=== PATIENT | male | born 1980 | race American Indian/Alaskan Native ===

== ENCOUNTER 2018-01-10 17:56 | Emergency (ER) | payer OTHER ==
[~2018-01-10] VITALS: Ht 167.6 cm; Wt 81.7 kg
[~2018-01-10 17:56] MED LIST: ALBU90OI INH; AMOCLA875 PO; AMOX500 PO; ANASPAZ PO; AZIT250 PO; CEPH500 PO; CIPR500 PO; CLON1 PO; CODGUAEL PO; CYCL10 PO; HYDACE10B PO; HYDACE5 PO; HYDR1TAB94 PO; HYOS.125 SL; IBUP800 PO; LEVFLO500 PO; LOPE2C PO; METO50 PO; METR500 PO; OXYACE5T PO; OXYACE7.5T PO; PANT40 PO; PRAZ2 PO; PRED10 PO; PRED20 PO; PROM25 PO; QUET200 PO; RANI150 PO; RXOXYACE PO; SULF500A PO; TRAM50 PO; WELLBUTRIN
[2018-01-10] MEDS ORDERED: Bactrim Ds Tab1 EACH PO (19:40)
[2018-01-10] MEDS ORDERED: CEPH500 PO (19:40)
== END 2018-01-10 19:45 | disposition home or self-care (01) ==
LOC: ER 17:56
DX: L01.00 Impetigo, unspecified (principal); Z91.030 Bee allergy status; Z88.8 Allergy status to other drugs, medicaments and biological substances; Z79.899 Other long term (current) drug therapy; Z79.891 Long term (current) use of opiate analgesic; J45.909 Unspecified asthma, uncomplicated; F43.10 Post-traumatic stress disorder, unspecified; F32.9 Major depressive disorder, single episode, unspecified; F20.9 Schizophrenia, unspecified; F17.210 Nicotine dependence, cigarettes, uncomplicated
CPT/HCPCS: 99283

== ENCOUNTER 2018-04-10 08:57 | Inpatient (IN) | payer OTHER ==
[~2018-04-10] VITALS: Ht 167.6 cm; Wt 81.9 kg
[~2018-04-10 08:57] MED LIST changes: +Bactrim Ds Tab1 EACH PO
[2018-04-10 10:18] LABS: BASOPHILS ABSOLUTE AUTO 0.03 K/mm3 (0.00-0.23); BASOPHILS PERCENT AUTO 0 % (0-2); EOSINOPHILS ABSOLUTE AUTO 0.04 K/mm3 (0.00-0.68); EOSINOPHILS PERCENT AUTO 0 % (0-6); Hematocrit 39.7 % (37.0-53.0); Hemoglobin 12.9 g/dL (13.5-17.5); IMMATURE GRAN ABSOLUTE AUTO 0.04 K/mm3 (0.00-0.10); IMMATURE GRAN PERCENT AUTO 0 % (0-1); LYMPHOCYTES ABSOLUTE AUTO 1.59 K/mm3 (0.84-5.20); LYMPHOCYTES PERCENT AUTO 11 % (21-46); MONOCYTES ABSOLUTE AUTO 1.09 K/mm3 (0.16-1.47); MONOCYTES PERCENT AUTO 8 % (4-13); Mean Corpuscular HGB 30.6 pg (26.0-34.0); Mean Corpuscular HGB Conc 32.5 g/dL (31.5-36.5); Mean Corpuscular Volume 94 fL (80-100); Mean Platelet Volume 9.1 fL (9.1-12.4); NEUTROPHILS ABSOLUTE AUTO 11.79 K/mm3 (1.96-9.15); NEUTROPHILS PERCENT AUTO 81 % (41-73); Platelet Count 296 K/mm3 (150-400); RDW Coefficient Variation 12.8 % (11.7-14.2); RDW Standard Deviation 44.1 fL (35.1-46.3); Red Blood Cell Count 4.21 M/mm3 (4.30-5.90); White Blood Cell Count 14.58 K/mm3 (4.00-11.30)
[2018-04-10 10:47] LABS: Alanine Aminotransfer (ALT/SGP 31 U/L (12-78); Albumin, Blood 3.8 g/dL (3.4-5.0); Alk Phos 96 U/L (50-136); Anion Gap 5 mmol/L (6-16); Aspartate Aminotrans (AST/SGOT 15 U/L (12-37); Bilirubin, Total 0.6 mg/dL (0.1-1.0); Blood Urea Nitrogen 9 mg/dL (8-24); Bun/Creatinine Ratio 9.2 (12.0-20.0); CO2, Blood 30 mmol/L (21-32); Calcium, Blood 8.6 mg/dL (8.5-10.1); Chloride, Blood 105 mmol/L (98-108); Creatinine, Blood 0.98 mg/dL (0.60-1.20); Globulin, Blood 3.8 g/dL (2.2-4.0); Glomerular Filtration Rate >60 (60-); Glucose, Blood 111 mg/dL (70-99); Potassium, Blood 3.6 mmol/L (3.5-5.5); Sodium, Blood 140 mmol/L (136-145); Total Protein, Blood 7.6 g/dL (6.4-8.2)
--- NOTE | 2018-04-10 15:18 | NUR ---
PATIENTS FAMILY MEMBER REQUESTED FOOD TRAY FOR PATIENT AND FOR HERSELF WHEN THEY CAME TO ROOM. I LET HER KNOW THAT WHEN RN CAME BACK FROM LUNCH SHE WOULD GET DIET ORDERS AND THEN WE WOULD BE ABLE TO GET APTIENT SOMETHING TO EAT. EXPALINED TO FAMILY MEMBER THAT WE CAN NOT GET TRAYS FOR FAMIYL BUT THAT COUOLD GET HER A SNACK. SHE STATED TO ME THAT THE ER TOLD HER WE COULD FEED HER TRAYS BECAUSE SHE WOULD BE STAYING WITH THE PATIENT THE WHOLE TIME BECAUSE HE DOES NOT DO WELL IN THE HOSPITAL. I LET HER KNOW THAT WE WOULD HAVE TO LOOK INTO THAT BECAUSE WE DO NOT DO THAT NORMALLY.
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
[2018-04-11 04:57] LABS: BASOPHILS ABSOLUTE AUTO 0.05 K/mm3 (0.00-0.23); BASOPHILS PERCENT AUTO 0 % (0-2); EOSINOPHILS ABSOLUTE AUTO 0.09 K/mm3 (0.00-0.68); EOSINOPHILS PERCENT AUTO 1 % (0-6); Hematocrit 37.8 % (37.0-53.0); Hemoglobin 12.5 g/dL (13.5-17.5); IMMATURE GRAN ABSOLUTE AUTO 0.03 K/mm3 (0.00-0.10); IMMATURE GRAN PERCENT AUTO 0 % (0-1); LYMPHOCYTES ABSOLUTE AUTO 2.77 K/mm3 (0.84-5.20); LYMPHOCYTES PERCENT AUTO 21 % (21-46); MONOCYTES ABSOLUTE AUTO 1.15 K/mm3 (0.16-1.47); MONOCYTES PERCENT AUTO 9 % (4-13); Mean Corpuscular HGB 30.6 pg (26.0-34.0); Mean Corpuscular HGB Conc 33.1 g/dL (31.5-36.5); Mean Corpuscular Volume 92 fL (80-100); Mean Platelet Volume 8.8 fL (9.1-12.4); NEUTROPHILS ABSOLUTE AUTO 9.23 K/mm3 (1.96-9.15); NEUTROPHILS PERCENT AUTO 69 % (41-73); Platelet Count 281 K/mm3 (150-400); RDW Coefficient Variation 12.6 % (11.7-14.2); RDW Standard Deviation 43.4 fL (35.1-46.3); Red Blood Cell Count 4.09 M/mm3 (4.30-5.90); White Blood Cell Count 13.32 K/mm3 (4.00-11.30)
[2018-04-11 05:31] LABS: Anion Gap 8 mmol/L (6-16); Blood Urea Nitrogen 8 mg/dL (8-24); Bun/Creatinine Ratio 10.1 (12.0-20.0); CO2, Blood 25 mmol/L (21-32); Calcium, Blood 8.1 mg/dL (8.5-10.1); Chloride, Blood 108 mmol/L (98-108); Creatinine, Blood 0.79 mg/dL (0.60-1.20); Glomerular Filtration Rate >60 (60-); Glucose, Blood 146 mg/dL (70-99); Potassium, Blood 3.4 mmol/L (3.5-5.5); Sodium, Blood 141 mmol/L (136-145)
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
--- NOTE | 2018-04-11 14:58 | NUR ---
DR DOMINGO AT BEDSIDE, NEW ORDERS FOR WOUND DRESSING ENTERED.
[2018-04-11 16:20] LABS: Vancomycin, Trough 10.5 ug/mL (5.0-10.0)
--- NOTE | 2018-04-11 18:09 | NUR ---
SHIFT SUMMARY PT A&OX4. ANXIOUS BUT COOPERATIVE WITH CARE. PT RESTING IN BED DURING SHIFT, UP IN SIDE OF BED FOR MEALS. IND IN ROOM. PT OUT TO SMOKE X2 DUIRNG SHIFT. PT REPORTS PAIN IN RIGHT HAND, UP TO ELBOW, MEDICATED X2 WITH PERCOCET WITH POSITIVE RESULTS. PT DENIES SOB AND N/V DURING SHIFT. PT RECEIVING IV ANTIBIOTICS. MRI NOT COMPLETED DURING SHIFT DUE TO POWER OUTAGE. ELEVATED BP AND HR NOTED, PT REPORTING INCREASED PAIN WHEN VS TAKEN, DR LAGOS NOTIIFED, NO NEW ORDERS. OTHER VSS. NO OTHER ACUTE CHANGES NOTE DURING SHIFT. WILL CONTINUE TO MONITOR UNTIL REPORT GIVEN TO ONCOMING RN.
[2018-04-12 05:30] LABS: BASOPHILS ABSOLUTE AUTO 0.03 K/mm3 (0.00-0.23); BASOPHILS PERCENT AUTO 0 % (0-2); EOSINOPHILS ABSOLUTE AUTO 0.11 K/mm3 (0.00-0.68); EOSINOPHILS PERCENT AUTO 1 % (0-6); Hemoglobin 12.4 g/dL (13.5-17.5); IMMATURE GRAN ABSOLUTE AUTO 0.02 K/mm3 (0.00-0.10); IMMATURE GRAN PERCENT AUTO 0 % (0-1); LYMPHOCYTES ABSOLUTE AUTO 1.77 K/mm3 (0.84-5.20); LYMPHOCYTES PERCENT AUTO 15 % (21-46); MONOCYTES PERCENT AUTO 10 % (4-13); Mean Corpuscular HGB 30.4 pg (26.0-34.0); Mean Corpuscular HGB Conc 32.6 g/dL (31.5-36.5); Mean Corpuscular Volume 93 fL (80-100); Mean Platelet Volume 9.1 fL (9.1-12.4); NEUTROPHILS ABSOLUTE AUTO 8.45 K/mm3 (1.96-9.15); NEUTROPHILS PERCENT AUTO 74 % (41-73); Platelet Count 298 K/mm3 (150-400); RDW Coefficient Variation 12.5 % (11.7-14.2); RDW Standard Deviation 43.3 fL (35.1-46.3); Red Blood Cell Count 4.08 M/mm3 (4.30-5.90); White Blood Cell Count 11.48 K/mm3 (4.00-11.30)
--- NOTE | 2018-04-12 05:35 | NUR ---
SHIFT SUMMARY PATIENT SLEPT THROUGH THE NIGHT. DID WAKE UP A FEW TIMES TO GO SMOKE OR TO REQUEST FOOD BUT OTHERWISE HAD NO CONCERNS DURING THE SHIFT. MOTHER STARTED VOMITTING (STAYING IN ROOM) BUT OTHERWISE UNEVENTFUL. BOIL ON HAND APPEARS TO HAVE BURST SLIGHTLY AND STARTED DRAINING PURULENT DRAINAGE. NEW KERLEX PLACED AROUND WOUND SITE. WILL CONTINUE TO MONITOR UNTIL SHIFT HANDOFF.
[2018-04-12 05:51] LABS: Anion Gap 6 mmol/L (6-16); Blood Urea Nitrogen 11 mg/dL (8-24); Bun/Creatinine Ratio 12.3 (12.0-20.0); CO2, Blood 27 mmol/L (21-32); Calcium, Blood 8.2 mg/dL (8.5-10.1); Chloride, Blood 107 mmol/L (98-108); Glomerular Filtration Rate >60 (60-); Glucose, Blood 90 mg/dL (70-99); Phosphorus, Blood 3.2 mg/dL (2.5-4.9); Potassium, Blood 4.3 mmol/L (3.5-5.5); Sodium, Blood 140 mmol/L (136-145)
--- NOTE | 2018-04-12 19:35 | NUR ---
SHIFT SUMMARY- PT HAS HAD NO ACUTE CHANGES T/O THE SHIFT. HE IS ALERT AND ORIENTED AND INDEPENDENT IN TH ROOM. PT WENT OUTSIDE ONCE DURRING THE SHIFT TO SMOKE. PT HAS SLEPT MOST OF THE DAY. HE WAS VERY CONCERNED ABOUT HIS MOTHER AT THE START OF THE SHIFT, RN ASSISTED HER TO A W/C AND ESCORTED HER TO THE ED. PT WAS ABLE TO SLEEP ONCE SHE WAS "BEING TAKEN CARE OF." PLAN IS TO KEEP THE PT ON IV ABX FOR A COUPLE MORE DAYS AND DISCHARGE HOME AFTER THAT. PT HAS THE OPTION OF 1-2 PERCOCET HE REQUESTS ONLY ONE AND STATES THAT WORKS WELL FOR HIS PAIN. PT WAS GIVEN ONE DOSE OF PAIN MEDICATION TODAY. CURRENTLY SLEEPING WITH THE CALL LIGHT IN REACH.
--- NOTE | 2018-04-13 04:40 | NUR ---
SHIFT SUMMARY PATIENT SLEPT OFF AND ON THROUGH THE NIGHT. HAD SOME COMPLAINTS OF PAIN AT IV SITE. NO PHLEBITIS OR INFILTRATION NOTED. PATIENT IS RECEIVING VANCOMYCIN THROUGH IV. SITE IS WARM TO TOUCH. COBAN NOTED ON SITE AND REMOVED BY JUAN DAVENPORT RN AFTER CONFIRMING NO PHLEBITIS OR INFILTRATION. PATIENT REPORTS PAIN IMPROVED WITH COBAN REMOVAL. WILL CONTINUE TO MONITOR. OUTSIDE OF THAT PATIENT IS AMBULATORY AND LEAVING THE UNIT TO SMOKE. HAS BEEN PERIODICALLY STOPPING INTO HIS MOTHER'S ROOM ON THE UNIT ALSO. NO OTHER QUESTIONS OR CONCERNS NOTED DURING SHIFT.
[2018-04-13 05:14] LABS: BASOPHILS ABSOLUTE AUTO 0.04 K/mm3 (0.00-0.23); BASOPHILS PERCENT AUTO 0 % (0-2); EOSINOPHILS ABSOLUTE AUTO 0.14 K/mm3 (0.00-0.68); EOSINOPHILS PERCENT AUTO 2 % (0-6); Hematocrit 39.8 % (37.0-53.0); IMMATURE GRAN ABSOLUTE AUTO 0.02 K/mm3 (0.00-0.10); IMMATURE GRAN PERCENT AUTO 0 % (0-1); LYMPHOCYTES PERCENT AUTO 27 % (21-46); MONOCYTES PERCENT AUTO 9 % (4-13); Mean Corpuscular HGB 30.3 pg (26.0-34.0); Mean Corpuscular HGB Conc 32.7 g/dL (31.5-36.5); Mean Corpuscular Volume 93 fL (80-100); NEUTROPHILS ABSOLUTE AUTO 5.56 K/mm3 (1.96-9.15); NEUTROPHILS PERCENT AUTO 62 % (41-73); Platelet Count 325 K/mm3 (150-400); RDW Coefficient Variation 12.6 % (11.7-14.2); RDW Standard Deviation 43.1 fL (35.1-46.3); Red Blood Cell Count 4.29 M/mm3 (4.30-5.90); White Blood Cell Count 8.96 K/mm3 (4.00-11.30)
--- NOTE | 2018-04-13 09:39 | NUR ---
ASSUMED CARE OF PT- *LATE ENTRY* 0700 PT SLEEPING DURRING REPORT. NO ACUTE CHANGES, MILD PAIN AT THE IV SITE PER REPORT FROM NIGHT RN.
--- NOTE | 2018-04-13 09:40 | NUR ---
*LATE ENTRY* 0800 PT OUT OF THE ROOM WILL ADMINISTER IV ABX WHEN PT IS BACK.
--- NOTE | 2018-04-13 09:41 | NUR ---
PT IV ABX STARTED LATE D/T PT AVAILABILITY, IV REMOVED AND NEW ONE PLACED. NEW IV INFUSING WELL. PT HAS A STRONG ODOR AFTER GOING OUTSIDE. SPOKE TO THE PT ABOUT SMOKING MARIJUANA WHILE AN INPT IN THE HOSPITAL AND THAT IT IS NOT ALLOWED. PT SEEMED SUPRISED BY THIS. EXPLAINED THAT IT CAN INTERACT WITH MEDS AND IT IS STRICTLY A NO NO. PT APPOLOGIZED. WILL INFORM THE DOCTOR. PT ALSO REQUESTED SNACKS EVEN THOUGH HE HAD BREAKFAST. PT IS AWARE HE IS NOT ALLOWED TO SMOKE MARIJUANA WHILE HERE.
[2018-04-13 10:26] LABS: Creatinine, Blood 0.83 mg/dL (0.60-1.20); Vancomycin, Trough 13.1 ug/mL (5.0-10.0)
--- NOTE | 2018-04-13 11:24 | NUR ---
SPOKE TO DR HARLEY ABOUT PT- NO I&D PLANNED. POSSIBLE FOR PT TO DISCHARGE TOMORROW OR EVEN TODAY, HAS NOT YET SEEN THE PT TODAY, INFORMED DR MISHRATRATE WHEN HE ROUNDED ON THE PT.
[2018-04-13] MEDS ORDERED: ONDA4ODT MM (14:29)
[2018-04-13] MEDS ORDERED: HYDR10 PO (14:29)
[2018-04-13] MEDS ORDERED: Augmentin 875-1 EACH PO (14:29)
--- NOTE | 2018-04-13 15:51 | NUR ---
DISCHARGE NOTE- PT DISCHARGED HOME, FRIEND PREASENT AT THE TIME OF THE DISCHARGE. PT WAS GIVEN VERBAL AND WRITTEN DISCHARGE INSTRUCTIONS AND ACKNOWLEDGED UNDERSANDING OF THEM. IV WAS DC'D AND WOUND WAS REDRESSED AFTER THE PT HAD SHOWERED. PT HAS NOT RECIEVED ANY PAIN MANAGEMENT MEDS TODAY AND DID NOT REQUEST ANY. PT REFUSED ESCORT AND WALKED OUT WITH HIS FRIEND.
== END 2018-04-13 15:17 | disposition home or self-care (01) | DRG 872 ==
LOC: ER 08:57 → MEDS 12:16 → ENPENDDIS 04-13 11:20 → MEDS 04-13 15:17
PROVIDERS: Family Medicine; Pharmacist; Physician Assistant; ADMIT Internal Medicine
DX: A41.9 Sepsis, unspecified organism (principal); L03.113 Cellulitis of right upper limb; L02.511 Cutaneous abscess of right hand; F20.9 Schizophrenia, unspecified; B85.0 Pediculosis due to Pediculus humanus capitis; J45.909 Unspecified asthma, uncomplicated; K21.9 Gastro-esophageal reflux disease without esophagitis; F17.210 Nicotine dependence, cigarettes, uncomplicated; Z23 Encounter for immunization
CPT/HCPCS: 36415; 76882; 80048; 80053; 80069; 80202; 82565; 83605; 83735; 85025; 87040; 93005; 93010; 96365; 96375; 96376; 99285-25; J0690; J2405; J3010; J3370; J7030; J7050

== ENCOUNTER → 2018-07-01 | Outpatient (CLI) | payer OTHER ==
[~2018-07-01] MED LIST changes: +Augmentin 875-1 EACH PO; +HYDR10 PO; +ONDA4ODT MM
[2018-07-03 03:07] LABS: CHLAMYDIA TRACHOMATIS, NAA Negative (Negative); NEISSERIA GONORRHOEAE, NAA Negative (Negative)
== END | disposition home or self-care (01) ==
LOC: LAB EV 15:44 → LAB SHORT 15:44
PROVIDERS: Physician Assistant
DX: Z20.2 Contact with and (suspected) exposure to infections with a predominantly sexual mode of transmission (principal)
CPT/HCPCS: 87491; 87591

== ENCOUNTER 2018-11-07 20:56 | Emergency (ER) | payer OTHER ==
[~2018-11-07] VITALS: Ht 167.6 cm; Wt 79.4 kg
[2018-11-07 21:35] LABS: BASOPHILS ABSOLUTE AUTO 0.04 K/mm3 (0.00-0.23); BASOPHILS PERCENT AUTO 0 % (0-2); EOSINOPHILS ABSOLUTE AUTO 0.12 K/mm3 (0.00-0.68); EOSINOPHILS PERCENT AUTO 1 % (0-6); Hematocrit 41.5 % (37.0-53.0); Hemoglobin 13.8 g/dL (13.5-17.5); IMMATURE GRAN ABSOLUTE AUTO 0.02 K/mm3 (0.00-0.10); IMMATURE GRAN PERCENT AUTO 0 % (0-1); LYMPHOCYTES ABSOLUTE AUTO 2.54 K/mm3 (0.84-5.20); LYMPHOCYTES PERCENT AUTO 27 % (21-46); MONOCYTES ABSOLUTE AUTO 0.83 K/mm3 (0.16-1.47); MONOCYTES PERCENT AUTO 9 % (4-13); Mean Corpuscular HGB 31.4 pg (26.0-34.0); Mean Corpuscular HGB Conc 33.3 g/dL (31.5-36.5); Mean Corpuscular Volume 95 fL (80-100); NEUTROPHILS ABSOLUTE AUTO 5.82 K/mm3 (1.96-9.15); NEUTROPHILS PERCENT AUTO 62 % (41-73); Platelet Count 341 K/mm3 (150-400); RDW Coefficient Variation 12.7 % (11.7-14.2); RDW Standard Deviation 43.9 fL (35.1-46.3); Red Blood Cell Count 4.39 M/mm3 (4.30-5.90); White Blood Cell Count 9.37 K/mm3 (4.00-11.30)
[2018-11-07 21:44] LABS: Source, Urine Clean Catch
[2018-11-07 21:45] LABS: Bilirubin, Urine Neg (Neg); Blood, Urine 2+ (Neg); Glucose Qualitative, Urine Neg (Neg); Ketones, Urine Neg (Neg); Leukocyte Esterase, Urine 3+ (Neg); Nitrite, Urine Neg (Neg); Protein, Urine 1+ (Neg); Specific Gravity, Urine 1.025 (1.003-1.022); Urobilinogen, Urine NORM (Normal)
[2018-11-07 21:48] LABS: Appearance, Urine Hazy (Clear); Color, Urine Yellow (P-Yellow)
[2018-11-07 21:52] LABS: Alanine Aminotransfer (ALT/SGP 27 U/L (12-78); Albumin, Blood 3.7 g/dL (3.4-5.0); Alk Phos 108 U/L (50-136); Anion Gap 4 mmol/L (6-16); Aspartate Aminotrans (AST/SGOT 11 U/L (12-37); Bilirubin, Total 0.1 mg/dL (0.1-1.0); Blood Urea Nitrogen 11 mg/dL (8-24); Bun/Creatinine Ratio 13.1 (12.0-20.0); CO2, Blood 31 mmol/L (21-32); Calcium, Blood 8.9 mg/dL (8.5-10.1); Chloride, Blood 107 mmol/L (98-108); Creatinine, Blood 0.84 mg/dL (0.60-1.20); Globulin, Blood 3.8 g/dL (2.2-4.0); Glomerular Filtration Rate >60 (60-); Glucose, Blood 83 mg/dL (70-99); Potassium, Blood 4.3 mmol/L (3.5-5.5); Sodium, Blood 142 mmol/L (136-145); Total Protein, Blood 7.5 g/dL (6.4-8.2)
[2018-11-07 21:52] LABS: Bacteria Mod /hpf; Red Blood Cells, Urine 0-2 /hpf (0-2); Squamous Epithelial Cells Not Seen /hpf (Few); White Blood Cells, Urine TNTC /hpf (0-5)
[2018-11-08] MEDS ORDERED: Macrobid 100 M100 MG PO (01:44)
== END 2018-11-08 04:26 | disposition home or self-care (01) ==
LOC: ER 20:56
PROVIDERS: Physician Assistant
DX: N39.0 Urinary tract infection, site not specified (principal); Z91.030 Bee allergy status; Z79.899 Other long term (current) drug therapy; J45.909 Unspecified asthma, uncomplicated; F20.9 Schizophrenia, unspecified; F17.200 Nicotine dependence, unspecified, uncomplicated
CPT/HCPCS: 36415; 74176; 80053; 81001; 83690; 85025; 87077; 87086; 87185; 96365; 96375; 99284-25; J0696; J1885

== ENCOUNTER 2019-04-04 14:08 | Emergency (ER) | payer OTHER ==
[~2019-04-04] VITALS: Ht 167.6 cm; Wt 74.8 kg
[~2019-04-04 14:08] MED LIST changes: -KETO10 PO
[2019-04-04 15:31] LABS: BASOPHILS ABSOLUTE AUTO 0.05 K/mm3 (0.00-0.23); BASOPHILS PERCENT AUTO 0 % (0-2); EOSINOPHILS ABSOLUTE AUTO 0.05 K/mm3 (0.00-0.68); EOSINOPHILS PERCENT AUTO 0 % (0-6); Hemoglobin 12.5 g/dL (13.5-17.5); IMMATURE GRAN ABSOLUTE AUTO 0.03 K/mm3 (0.00-0.10); IMMATURE GRAN PERCENT AUTO 0 % (0-1); LYMPHOCYTES ABSOLUTE AUTO 1.71 K/mm3 (0.84-5.20); LYMPHOCYTES PERCENT AUTO 14 % (21-46); MONOCYTES ABSOLUTE AUTO 1.14 K/mm3 (0.16-1.47); MONOCYTES PERCENT AUTO 9 % (4-13); Mean Corpuscular HGB 31.3 pg (26.0-34.0); Mean Corpuscular HGB Conc 32.9 g/dL (31.5-36.5); Mean Corpuscular Volume 95 fL (80-100); Mean Platelet Volume 8.9 fL (9.1-12.4); NEUTROPHILS ABSOLUTE AUTO 9.45 K/mm3 (1.96-9.15); NEUTROPHILS PERCENT AUTO 76 % (41-73); Platelet Count 386 K/mm3 (150-400); RDW Coefficient Variation 12.6 % (11.7-14.2); RDW Standard Deviation 44.1 fL (35.1-46.3); White Blood Cell Count 12.43 K/mm3 (4.00-11.30)
[2019-04-04 15:59] LABS: Alanine Aminotransfer (ALT/SGP 39 U/L (12-78); Albumin, Blood 3.5 g/dL (3.4-5.0); Albumin/Globulin Ratio 0.8 (0.8-1.8); Alk Phos 114 U/L (50-136); Anion Gap 6 mmol/L (6-16); Aspartate Aminotrans (AST/SGOT 17 U/L (12-37); Bilirubin, Total 0.3 mg/dL (0.1-1.0); Blood Urea Nitrogen 12 mg/dL (8-24); Bun/Creatinine Ratio 14.4 (12.0-20.0); CO2, Blood 28 mmol/L (21-32); Calcium, Blood 9.6 mg/dL (8.5-10.1); Chloride, Blood 106 mmol/L (98-108); Creatinine, Blood 0.84 mg/dL (0.60-1.20); Globulin, Blood 4.2 g/dL (2.2-4.0); Glomerular Filtration Rate >60 (60-); Glucose, Blood 108 mg/dL (70-99); Potassium, Blood 3.9 mmol/L (3.5-5.5); Sodium, Blood 140 mmol/L (136-145); Total Protein, Blood 7.7 g/dL (6.4-8.2)
[2019-04-04] MEDS ORDERED: KETO10 PO (16:21)
[2019-04-04] MEDS ORDERED: CEPH500 PO (16:21)
[2019-04-04] MEDS ORDERED: Bactrim Ds Tab1 EACH PO (16:21)
== END 2019-04-04 17:31 | disposition home or self-care (01) ==
LOC: ER 14:08
PROVIDERS: Physician Assistant
DX: L02.415 Cutaneous abscess of right lower limb (principal); L03.115 Cellulitis of right lower limb; Z91.030 Bee allergy status
CPT/HCPCS: 10060; 36415; 80053; 83605; 85025; 87040; 96360-59; 99283-25; A9270-GY; J1885; J3370; J7050

== ENCOUNTER → 2019-04-04 | Outpatient (CLI) | payer OTHER ==
[~2019-04-04] MED LIST changes: +KETO10 PO; +Macrobid 100 M100 MG PO
== END | disposition home or self-care (01) ==
LOC: LAB EV 14:13 → LAB SHORT 14:13
DX: L03.115 Cellulitis of right lower limb (principal); L03.116 Cellulitis of left lower limb
CPT/HCPCS: 87070; 87077; 87147; 87186; 87205

== ENCOUNTER 2019-06-10 14:10 | Inpatient (IN) | payer OTHER ==
[~2019-06-10] VITALS: Ht 180.3 cm; Wt 77.5 kg
[~2019-06-10 14:10] MED LIST changes: +KETO10 PO
[2019-06-10 14:59] LABS: BASOPHILS ABSOLUTE AUTO 0.02 K/mm3 (0.00-0.23); BASOPHILS PERCENT AUTO 0 % (0-2); EOSINOPHILS ABSOLUTE AUTO 0.05 K/mm3 (0.00-0.68); EOSINOPHILS PERCENT AUTO 1 % (0-6); Hematocrit 35.6 % (37.0-53.0); Hemoglobin 11.4 g/dL (13.5-17.5); IMMATURE GRAN ABSOLUTE AUTO 0.02 K/mm3 (0.00-0.10); IMMATURE GRAN PERCENT AUTO 0 % (0-1); LYMPHOCYTES ABSOLUTE AUTO 1.68 K/mm3 (0.84-5.20); LYMPHOCYTES PERCENT AUTO 21 % (21-46); MONOCYTES ABSOLUTE AUTO 0.54 K/mm3 (0.16-1.47); MONOCYTES PERCENT AUTO 7 % (4-13); Mean Corpuscular HGB 30.6 pg (26.0-34.0); Mean Corpuscular Volume 95 fL (80-100); Mean Platelet Volume 9.2 fL (9.1-12.4); NEUTROPHILS ABSOLUTE AUTO 5.78 K/mm3 (1.96-9.15); NEUTROPHILS PERCENT AUTO 72 % (41-73); Platelet Count 328 K/mm3 (150-400); RDW Coefficient Variation 13.1 % (11.7-14.2); RDW Standard Deviation 45.9 fL (35.1-46.3); Red Blood Cell Count 3.73 M/mm3 (4.30-5.90); White Blood Cell Count 8.09 K/mm3 (4.00-11.30)
[2019-06-10 15:11] LABS: Alanine Aminotransfer (ALT/SGP 29 U/L (12-78); Albumin, Blood 3.3 g/dL (3.4-5.0); Alk Phos 82 U/L (50-136); Anion Gap 3 mmol/L (6-16); Aspartate Aminotrans (AST/SGOT 17 U/L (12-37); Bilirubin, Total 0.2 mg/dL (0.1-1.0); Blood Urea Nitrogen 11 mg/dL (8-24); Bun/Creatinine Ratio 13.2 (12.0-20.0); CO2, Blood 29 mmol/L (21-32); Calcium, Blood 8.3 mg/dL (8.5-10.1); Chloride, Blood 113 mmol/L (98-108); Creatinine, Blood 0.84 mg/dL (0.60-1.20); Globulin, Blood 3.2 g/dL (2.2-4.0); Glomerular Filtration Rate >60 (60-); Glucose, Blood 82 mg/dL (70-99); Potassium, Blood 3.8 mmol/L (3.5-5.5); Sodium, Blood 145 mmol/L (136-145); Total Protein, Blood 6.5 g/dL (6.4-8.2)
[2019-06-10 15:16] LABS: International Normalized Ratio 0.99; Prothrombin Time Results 10.6 Sec (9.7-11.5)
[2019-06-10 18:18] LABS: Hematocrit 27.8 % (37.0-53.0); Hemoglobin 9.1 g/dL (13.5-17.5)
[2019-06-10 21:29] LABS: BASOPHILS ABSOLUTE AUTO 0.01 K/mm3 (0.00-0.23); BASOPHILS PERCENT AUTO 0 % (0-2); EOSINOPHILS PERCENT AUTO 0 % (0-6); Hematocrit 25.8 % (37.0-53.0); Hemoglobin 8.3 g/dL (13.5-17.5); IMMATURE GRAN ABSOLUTE AUTO 0.04 K/mm3 (0.00-0.10); IMMATURE GRAN PERCENT AUTO 0 % (0-1); LYMPHOCYTES ABSOLUTE AUTO 1.04 K/mm3 (0.84-5.20); LYMPHOCYTES PERCENT AUTO 7 % (21-46); MONOCYTES ABSOLUTE AUTO 1.42 K/mm3 (0.16-1.47); MONOCYTES PERCENT AUTO 10 % (4-13); Mean Corpuscular HGB 31.3 pg (26.0-34.0); Mean Corpuscular HGB Conc 32.2 g/dL (31.5-36.5); Mean Corpuscular Volume 97 fL (80-100); Mean Platelet Volume 9.3 fL (9.1-12.4); NEUTROPHILS ABSOLUTE AUTO 12.22 K/mm3 (1.96-9.15); NEUTROPHILS PERCENT AUTO 83 % (41-73); Platelet Count 240 K/mm3 (150-400); RDW Coefficient Variation 13.2 % (11.7-14.2); RDW Standard Deviation 46.8 fL (35.1-46.3); Red Blood Cell Count 2.65 M/mm3 (4.30-5.90); White Blood Cell Count 14.73 K/mm3 (4.00-11.30)
[2019-06-10 22:03] LABS: Source, Urine Catheter
[2019-06-10 22:06] LABS: Bilirubin, Urine Neg (Neg); Blood, Urine Neg (Neg); Glucose Qualitative, Urine 2+ (Neg); Ketones, Urine Neg (Neg); Leukocyte Esterase, Urine Neg (Neg); Nitrite, Urine Neg (Neg); Protein, Urine 2+ (Neg); Specific Gravity, Urine 1.015 (1.003-1.022); Urobilinogen, Urine NORM (Normal)
[2019-06-10 22:14] LABS: Appearance, Urine Clear (Clear); Color, Urine Yellow (P-Yellow)
[2019-06-10 22:15] LABS: Bacteria Not Seen /hpf; Red Blood Cells, Urine Not Seen /hpf (0-2); Squamous Epithelial Cells Not Seen /hpf (Few); White Blood Cells, Urine 0-2 /hpf (0-5)
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
[2019-06-11 04:02] LABS: BASOPHILS ABSOLUTE AUTO 0.01 K/mm3 (0.00-0.23); BASOPHILS PERCENT AUTO 0 % (0-2); EOSINOPHILS ABSOLUTE AUTO 0.01 K/mm3 (0.00-0.68); EOSINOPHILS PERCENT AUTO 0 % (0-6); Hemoglobin 7.4 g/dL (13.5-17.5); IMMATURE GRAN ABSOLUTE AUTO 0.02 K/mm3 (0.00-0.10); IMMATURE GRAN PERCENT AUTO 0 % (0-1); LYMPHOCYTES ABSOLUTE AUTO 1.79 K/mm3 (0.84-5.20); LYMPHOCYTES PERCENT AUTO 22 % (21-46); MONOCYTES ABSOLUTE AUTO 0.76 K/mm3 (0.16-1.47); MONOCYTES PERCENT AUTO 10 % (4-13); Mean Corpuscular HGB 30.8 pg (26.0-34.0); Mean Corpuscular HGB Conc 32.2 g/dL (31.5-36.5); Mean Corpuscular Volume 96 fL (80-100); Mean Platelet Volume 9.3 fL (9.1-12.4); NEUTROPHILS ABSOLUTE AUTO 5.43 K/mm3 (1.96-9.15); NEUTROPHILS PERCENT AUTO 68 % (41-73); Platelet Count 240 K/mm3 (150-400); RDW Coefficient Variation 13.1 % (11.7-14.2); RDW Standard Deviation 46.2 fL (35.1-46.3); White Blood Cell Count 8.02 K/mm3 (4.00-11.30)
[2019-06-11 04:21] LABS: Anion Gap 4 mmol/L (6-16); Blood Urea Nitrogen 8 mg/dL (8-24); Bun/Creatinine Ratio 10.7 (12.0-20.0); CO2, Blood 22 mmol/L (21-32); Calcium, Blood 7.3 mg/dL (8.5-10.1); Chloride, Blood 113 mmol/L (98-108); Creatinine, Blood 0.75 mg/dL (0.60-1.20); Glomerular Filtration Rate >60 (60-); Glucose, Blood 102 mg/dL (70-99); Potassium, Blood 3.8 mmol/L (3.5-5.5); Sodium, Blood 139 mmol/L (136-145)
--- NOTE | 2019-06-11 04:25 | NUR ---
UPDATE TO DR. QEUVEDO INFORMED OF DROP IN HGB TO 7.4. UPDATED REGARDING PATRICIA GIRON ORDERS FOR THE BLOOD IN WHICH IT LATER GOT CANCELLED D/T STABLE VS AND HGB OF 8.4. ORDERS TO REDRAW CBC AT 0800.
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
[2019-06-11 08:08] LABS: BASOPHILS ABSOLUTE AUTO 0.02 K/mm3 (0.00-0.23); BASOPHILS PERCENT AUTO 0 % (0-2); EOSINOPHILS ABSOLUTE AUTO 0.01 K/mm3 (0.00-0.68); EOSINOPHILS PERCENT AUTO 0 % (0-6); Hematocrit 21.8 % (37.0-53.0); IMMATURE GRAN ABSOLUTE AUTO 0.01 K/mm3 (0.00-0.10); IMMATURE GRAN PERCENT AUTO 0 % (0-1); LYMPHOCYTES ABSOLUTE AUTO 2.05 K/mm3 (0.84-5.20); LYMPHOCYTES PERCENT AUTO 27 % (21-46); MONOCYTES ABSOLUTE AUTO 0.96 K/mm3 (0.16-1.47); MONOCYTES PERCENT AUTO 13 % (4-13); Mean Corpuscular HGB 30.8 pg (26.0-34.0); Mean Corpuscular HGB Conc 32.1 g/dL (31.5-36.5); Mean Corpuscular Volume 96 fL (80-100); Mean Platelet Volume 9.2 fL (9.1-12.4); NEUTROPHILS ABSOLUTE AUTO 4.59 K/mm3 (1.96-9.15); NEUTROPHILS PERCENT AUTO 60 % (41-73); Platelet Count 226 K/mm3 (150-400); RDW Coefficient Variation 13.2 % (11.7-14.2); RDW Standard Deviation 46.5 fL (35.1-46.3); Red Blood Cell Count 2.27 M/mm3 (4.30-5.90); White Blood Cell Count 7.64 K/mm3 (4.00-11.30)
--- NOTE | 2019-06-11 12:00 | NUR ---
UPDATE Pt awake, alert, and oriented. Pt OOB to chair. Received bed bath. Pt to toilet twice, tolerating activity well. Pt denies chest pain or shortness of breath. Rings removed from 2nd, 3rd, and 4th fingers of LUE. Color, sensation, pulses, and capillary refill equal BUE and BLE. Pt generally in good mood, but tearful when talking about his dog. States fear that his dog will be put down. Pt's friend who witnessed incident preceeding pt's arrival to hospital states that pt's dog has been acting in an unusal manner and intentially attacked service dog trainer. He states a dog fight did not occur. He states that dog was retrieved by animal control.
[2019-06-11 13:03] LABS: Hematocrit 21.6 % (37.0-53.0)
--- NOTE | 2019-06-11 18:06 | NUR ---
SUMMARY Pt has been lethargic for majority of shift. Pt wide awake for approx 4 hours. Pt mobilizes around room with standby assist. Forgets to use call light. Bed alarm on. Pt on room air. ST per monitor, with rate ranging from 100-105. Pt has had two bowel movements this shift. Educated on urinal usage, however pt voids into toilet, therefore urine output has not been measured. All wounds cleansed and dressings changed. Consult called for Dr Bob, however provider has not been by to see patient. Will continue to closely monitor until care handoff and bedside report with oncoming RN.
--- NOTE | 2019-06-11 19:28 | NUR ---
ASSUMED PT CARE FROM MEHRAN QUEZADA BEDSIDE REPORT GIVEN. PT SLEEPING AT THIS TIME. LEFT RADIAL SITE IS SOFT, NON-TENDER WITH NO OOZING OR HEMATOMA NOTED. LEFT UPPER ARM REMAINS SWOLLEN, BRUISED, WITH HEMATOMA STILL PRESENT. LEFT RADIAL PULSE IS PALPABLE AND STRONG. DISTAL FINGERS/HAND IS WARM TO THE TOUCH WITH GOOD CAPILLARY REFILL. RIGHT GROIN SITE REMAINS SOFT, NON-TENDER WITH NO OOZING OR HEMATOMA NOTED; ANGIOSEAL CLOSURE DEVICE USED; DRESSING IS CDI. PT IS VERY TIRED, BUT WAKES EASILY. ALERT AND ORIENTED AND ABLE TO MAKE NEEDS KNOWN. CALL LIGHT WITHIN REACH; WILL CONTINUE TO ENCOURAGE PT TO USE APPROPRIATELY.
--- NOTE | 2019-06-11 20:08 | NUR ---
DR. BENAVIDES AT BEDSIDE DR. BENAVIDES STATED THAT THE SWELLING TO LEFT ARM IS NORMAL. IT WILL RESOLVE OVER TIME; HOWEVER, STILL STRESSED THE IMPORTANCE OF NO PALPATION TO AREA D/T NEWLY PLACED STENT. STATED IT WILL TAKE UP TO SEVERAL WEEKS FOR THE ENDOTHELIUM OF THE ARTERY TO GROW THROUGH THE STENT IN ORDER TO HEAL ITSELF. THEREFORE, DISCHARGE INSTRUCTIONS SHOULD INCLUDE TEACHING REGARDING "TAKING IT EASY" FOR THE NEXT SEVERAL WEEKS. NONETHELESS, BLOOD PRESSURES AND LAB DRAWS SHOULD CONTINUE TO BE AVOIDED DURING THIS HOSPITAL STAY. HE ALSO STATED THAT HE DOESN'T WANT PT TO BE ON ANY ANTIPLATELET OR ANTICOAGULATION D/T HIS HIGH RISK OF BLEEDING. PT IS RESTING SOUNDLY AT THIS TIME. WILL CONTINUE TO MONITOR.
--- NOTE | 2019-06-11 21:58 | NUR ---
REPORT GIVEN TO MEHRAN MONROY PT TO TRANSFER TO ROOM 208; SURGICAL FLOOR
--- NOTE | 2019-06-11 22:22 | NUR ---
PT ARRIVED TO ROOM 208 FROM ICU 13. PT ALERT, DROWSY. LUE SWOLLEN AND BRUISED. SMALL AMT DRY DRNG FROM UPPER ARM INCISION, DRESSING TO L SHOULDER W/SMALL AMT SHADOWING PRESENT. L RADIAL SITE WNL W/TEGADERM COVERING SITE. R GROIN WNL, NO HEMATOMA NOTED. PT ORIENTED TO ROOM/CALL LIGHT. BED ALARM ON FOR SAFETY. PLAN TO MONITOR AND TX PER ORDERS.
[2019-06-12 05:14] LABS: BASOPHILS ABSOLUTE AUTO 0.04 K/mm3 (0.00-0.23); BASOPHILS PERCENT AUTO 1 % (0-2); EOSINOPHILS ABSOLUTE AUTO 0.11 K/mm3 (0.00-0.68); EOSINOPHILS PERCENT AUTO 2 % (0-6); Hematocrit 22.5 % (37.0-53.0); Hemoglobin 7.3 g/dL (13.5-17.5); IMMATURE GRAN ABSOLUTE AUTO 0.02 K/mm3 (0.00-0.10); IMMATURE GRAN PERCENT AUTO 0 % (0-1); LYMPHOCYTES ABSOLUTE AUTO 2.01 K/mm3 (0.84-5.20); LYMPHOCYTES PERCENT AUTO 28 % (21-46); MONOCYTES ABSOLUTE AUTO 1.06 K/mm3 (0.16-1.47); MONOCYTES PERCENT AUTO 15 % (4-13); Mean Corpuscular HGB 30.4 pg (26.0-34.0); Mean Corpuscular HGB Conc 32.4 g/dL (31.5-36.5); Mean Corpuscular Volume 94 fL (80-100); Mean Platelet Volume 9.2 fL (9.1-12.4); NEUTROPHILS ABSOLUTE AUTO 4.08 K/mm3 (1.96-9.15); NEUTROPHILS PERCENT AUTO 56 % (41-73); Platelet Count 219 K/mm3 (150-400); RDW Coefficient Variation 14.3 % (11.7-14.2); RDW Standard Deviation 48.9 fL (35.1-46.3); White Blood Cell Count 7.32 K/mm3 (4.00-11.30)
[2019-06-12 05:31] LABS: Albumin, Blood 2.5 g/dL (3.4-5.0); Anion Gap 4 mmol/L (6-16); Blood Urea Nitrogen 11 mg/dL (8-24); Bun/Creatinine Ratio 12.8 (12.0-20.0); CO2, Blood 29 mmol/L (21-32); Calcium, Blood 7.8 mg/dL (8.5-10.1); Chloride, Blood 110 mmol/L (98-108); Creatinine, Blood 0.86 mg/dL (0.60-1.20); Glomerular Filtration Rate >60 (60-); Glucose, Blood 96 mg/dL (70-99); Phosphorus, Blood 3.1 mg/dL (2.5-4.9); Potassium, Blood 4.3 mmol/L (3.5-5.5); Sodium, Blood 143 mmol/L (136-145)
--- NOTE | 2019-06-12 07:05 | NUR ---
pt oob into the bathroom to void pt back into bed bed alarm on pt stated he l hand is numb pt dressing to upper arm has half dollar size shadow of draiage on it pt fell back to sleep
--- NOTE | 2019-06-12 07:29 | NUR ---
PT VSS SINCE ARRIVING TO FLOOR. LUE REMAINS SWOLLEN, ARM ELEVATED ON PILLOW IN BED. PT REP MILD NUMBNESS TO ARM, CAP REFILL AND PULSES WNL. DRESSINGS INTACT, W/SMALL AMT SS DRNG, ACCESS SITES WNL. PAIN MGD PER EMAR. PT SLEPT FOR MOST OF NIGHT, AWAKES SUDDENLY AND IS IMPULSIVE WHEN UP. BED ALARM ON FOR SAFETY. IV ABX CONT PER ORDERS. BEDSIDE REPORT GIVEN TO DAY RN.
--- NOTE | 2019-06-12 07:49 | NUR ---
pt wanting to go out and smoke unhooked iv pt stated he has to go out told him the risks
--- NOTE | 2019-06-12 08:26 | NUR ---
meds given as sched pt stated he has had 2 bm will hold bowel care meds pt req pain meds 1 norco given pt stated he had no dizziness going outside to smoke
--- NOTE | 2019-06-12 09:09 | NUR ---
pt wanting to go and smoke again unhooked iv
--- NOTE | 2019-06-12 09:22 | NUR ---
pt back from smoking using a vaping pen
--- NOTE | 2019-06-12 11:01 | NUR ---
dr freitas called pt to have lab draw for cbc pt had unit prbc yesterday discussed pt s/s and dressing
[2019-06-12 11:35] LABS: Hematocrit 22.5 % (37.0-53.0); Hemoglobin 7.4 g/dL (13.5-17.5)
[2019-06-12 11:57] LABS: Vancomycin, Trough 12.9 ug/mL (5.0-10.0)
--- NOTE | 2019-06-12 12:53 | NUR ---
dr freitas by to see pt po pain meds and iv abx infusing pt had 2 trays of food pt stated his nose has been running
--- NOTE | 2019-06-12 15:05 | NUR ---
DR BUCIO CALLED ORTHO CONSULT FOR DR OSBORN PT ALSO TO HAVE A CT SCAN PT HAD ANOTHER IV PLACED TO AC FOR SCAN
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
--- NOTE | 2019-06-12 17:38 | NUR ---
DR BUCIO BY TO SEE PT REMOVED THE SUTURES TO THE UNDERNEATH OF PT ARM PLACED A DRESSING ALSO REMOVED AND CLEANED THE TOP DRESSING PT ALSO HAD A DRESSING TO LOWER LEG IT WAS CLEANED AND CHANGED LAST PT TEARFUL DR BUCIO CALLED DR BENAVIDES TO SEE WHAT HIS CONDUCTOR ROAD FREIGHT FOR THE STENT WILL BE THREE MONTHS
[2019-06-13 04:40] LABS: BASOPHILS ABSOLUTE AUTO 0.05 K/mm3 (0.00-0.23); BASOPHILS PERCENT AUTO 1 % (0-2); EOSINOPHILS ABSOLUTE AUTO 0.18 K/mm3 (0.00-0.68); EOSINOPHILS PERCENT AUTO 2 % (0-6); Hematocrit 23.9 % (37.0-53.0); Hemoglobin 7.8 g/dL (13.5-17.5); IMMATURE GRAN ABSOLUTE AUTO 0.03 K/mm3 (0.00-0.10); IMMATURE GRAN PERCENT AUTO 0 % (0-1); LYMPHOCYTES PERCENT AUTO 26 % (21-46); MONOCYTES ABSOLUTE AUTO 1.16 K/mm3 (0.16-1.47); MONOCYTES PERCENT AUTO 13 % (4-13); Mean Corpuscular HGB 30.5 pg (26.0-34.0); Mean Corpuscular HGB Conc 32.6 g/dL (31.5-36.5); Mean Corpuscular Volume 93 fL (80-100); Mean Platelet Volume 9.1 fL (9.1-12.4); NEUTROPHILS ABSOLUTE AUTO 5.02 K/mm3 (1.96-9.15); NEUTROPHILS PERCENT AUTO 58 % (41-73); Platelet Count 265 K/mm3 (150-400); RDW Coefficient Variation 14.2 % (11.7-14.2); RDW Standard Deviation 47.5 fL (35.1-46.3); Red Blood Cell Count 2.56 M/mm3 (4.30-5.90); White Blood Cell Count 8.64 K/mm3 (4.00-11.30)
[2019-06-13 05:00] LABS: Albumin, Blood 2.7 g/dL (3.4-5.0); Anion Gap 4 mmol/L (6-16); Blood Urea Nitrogen 9 mg/dL (8-24); Bun/Creatinine Ratio 10.6 (12.0-20.0); CO2, Blood 30 mmol/L (21-32); Calcium, Blood 8.4 mg/dL (8.5-10.1); Chloride, Blood 106 mmol/L (98-108); Creatinine, Blood 0.85 mg/dL (0.60-1.20); Glomerular Filtration Rate >60 (60-); Glucose, Blood 97 mg/dL (70-99); Phosphorus, Blood 4.6 mg/dL (2.5-4.9); Sodium, Blood 140 mmol/L (136-145)
--- NOTE | 2019-06-13 05:59 | NUR ---
SHIFT SUMMARY: ZACARIAS HAS RESTED INTERMITTENTLY DURING THE NIGHT. HE REPORTS "BAD DREAMS" THAT HAVE DISTURBED HIS SLEEP. HE STATED THAT THE WASN'T FEELING WELL, AND THOUGHT THAT HE MAY HAVE ALLERGIES. HE IS AFEBRILE. HE HAS BEEN DIAPHORETIC AT TIMES. HE HAS A STRONG RADIAL PULSE IN BOTH WRISTS. IV TO THE RIGHT AC PATENT. HE IS ABLE TO MAKE HIS NEEDS KNOWN. HE IS INDEPENDENT IN THE ROOM AND HAS GONE OUTSIDE TO SMOKE. HE REPORTS ADEQUATE PAIN CONTROL WITH PO MEDICATIONS. DRESSINGS INTACT. HE FEELS THAT HIS LEFT HAND IS SLIGHTLY LESS SWOLLEN THAN IT WAS BEFORE. HE IS TOLERATING PO INTAKE WELL, EXCELLENT INTAKE. HE IS LYING IN BED WITH HIS CALL LIGHT IN REACH. HE DOES USE HIS CALL LIGHT APPROPRIATELY. WILL REPORT TO DAY SHIFT RN.
--- NOTE | 2019-06-13 19:05 | NUR ---
SHIFT SUMMARY PT HAS DONE WELL THIS SHIFT. AMBULATES INDEPENDENTLY IN ROOM. HEPARIN GTT RUNNING PER EMAR. ANTIBIOTICS PER EMAR. DRESSING TO L SHOULDER C/D/I.
[2019-06-14 04:43] LABS: BASOPHILS ABSOLUTE AUTO 0.07 K/mm3 (0.00-0.23); BASOPHILS PERCENT AUTO 1 % (0-2); EOSINOPHILS PERCENT AUTO 2 % (0-6); Hematocrit 24.8 % (37.0-53.0); Hemoglobin 7.8 g/dL (13.5-17.5); IMMATURE GRAN ABSOLUTE AUTO 0.05 K/mm3 (0.00-0.10); IMMATURE GRAN PERCENT AUTO 1 % (0-1); LYMPHOCYTES ABSOLUTE AUTO 3.11 K/mm3 (0.84-5.20); LYMPHOCYTES PERCENT AUTO 35 % (21-46); MONOCYTES ABSOLUTE AUTO 0.79 K/mm3 (0.16-1.47); MONOCYTES PERCENT AUTO 9 % (4-13); Mean Corpuscular HGB 30.7 pg (26.0-34.0); Mean Corpuscular HGB Conc 31.5 g/dL (31.5-36.5); Mean Corpuscular Volume 98 fL (80-100); Mean Platelet Volume 8.9 fL (9.1-12.4); NEUTROPHILS ABSOLUTE AUTO 4.79 K/mm3 (1.96-9.15); NEUTROPHILS PERCENT AUTO 53 % (41-73); NRBC ABSOLUTE 0.02 K/mm3 (0.00-0.02); NRBC Auto 0.2 /100 WBC (0.0-0.2); Platelet Count 323 K/mm3 (150-400); RDW Coefficient Variation 14.1 % (11.7-14.2); RDW Standard Deviation 49.6 fL (35.1-46.3); Red Blood Cell Count 2.54 M/mm3 (4.30-5.90); White Blood Cell Count 9.01 K/mm3 (4.00-11.30)
--- NOTE | 2019-06-14 04:53 | NUR ---
SHIFT SUMMARY: ZACARIAS RESTED COMFORTABLY FOR MOST OF THE NIGHT. HE CONTINUES TO HAVE EXCELLENT PO INTAKE. HE DID COMPLAIN OF SORENESS TO HIS BUE FOR WHICH HE REPORTED THE NORCO TO BE EFFECTIVE. HE IS INDEPENDENT TO THE BATHROOM. IV X 2 TO RUE PATENT. HEPARIN INFUSING. HE IS ABLE TO MAKE HIS NEEDS KNOWN. HE IS LYING IN BED WTIH HIS CALL LIGHT IN REACH. HE DOES USE HIS CALL LIGHT APPROPRIATELY. WILL REPORT TO DAY SHIFT RN.
[2019-06-14 05:00] LABS: Albumin, Blood 2.6 g/dL (3.4-5.0); Anion Gap 5 mmol/L (6-16); Blood Urea Nitrogen 8 mg/dL (8-24); Bun/Creatinine Ratio 9.4 (12.0-20.0); CO2, Blood 29 mmol/L (21-32); Calcium, Blood 8.3 mg/dL (8.5-10.1); Chloride, Blood 106 mmol/L (98-108); Creatinine, Blood 0.85 mg/dL (0.60-1.20); Glomerular Filtration Rate >60 (60-); Glucose, Blood 108 mg/dL (70-99); Phosphorus, Blood 3.7 mg/dL (2.5-4.9); Potassium, Blood 4.1 mmol/L (3.5-5.5); Sodium, Blood 140 mmol/L (136-145)
[2019-06-14 11:36] LABS: Vancomycin, Trough 15.6 ug/mL (5.0-10.0)
[2019-06-15 04:38] LABS: BASOPHILS ABSOLUTE AUTO 0.07 K/mm3 (0.00-0.23); BASOPHILS PERCENT AUTO 1 % (0-2); EOSINOPHILS ABSOLUTE AUTO 0.24 K/mm3 (0.00-0.68); EOSINOPHILS PERCENT AUTO 2 % (0-6); Hematocrit 24.7 % (37.0-53.0); Hemoglobin 7.9 g/dL (13.5-17.5); IMMATURE GRAN ABSOLUTE AUTO 0.15 K/mm3 (0.00-0.10); IMMATURE GRAN PERCENT AUTO 2 % (0-1); LYMPHOCYTES ABSOLUTE AUTO 3.03 K/mm3 (0.84-5.20); LYMPHOCYTES PERCENT AUTO 31 % (21-46); MONOCYTES ABSOLUTE AUTO 1.02 K/mm3 (0.16-1.47); MONOCYTES PERCENT AUTO 10 % (4-13); Mean Corpuscular HGB 30.7 pg (26.0-34.0); Mean Corpuscular Volume 96 fL (80-100); Mean Platelet Volume 8.7 fL (9.1-12.4); NEUTROPHILS PERCENT AUTO 54 % (41-73); NRBC ABSOLUTE 0.03 K/mm3 (0.00-0.02); NRBC Auto 0.3 /100 WBC (0.0-0.2); Platelet Count 372 K/mm3 (150-400); RDW Coefficient Variation 14.4 % (11.7-14.2); RDW Standard Deviation 49.1 fL (35.1-46.3); Red Blood Cell Count 2.57 M/mm3 (4.30-5.90); White Blood Cell Count 9.81 K/mm3 (4.00-11.30)
[2019-06-15 04:54] LABS: Albumin, Blood 2.7 g/dL (3.4-5.0); Anion Gap 5 mmol/L (6-16); Blood Urea Nitrogen 12 mg/dL (8-24); Bun/Creatinine Ratio 14.8 (12.0-20.0); CO2, Blood 28 mmol/L (21-32); Calcium, Blood 8.5 mg/dL (8.5-10.1); Chloride, Blood 108 mmol/L (98-108); Creatinine, Blood 0.81 mg/dL (0.60-1.20); Glomerular Filtration Rate >60 (60-); Glucose, Blood 104 mg/dL (70-99); Phosphorus, Blood 3.7 mg/dL (2.5-4.9); Potassium, Blood 4.3 mmol/L (3.5-5.5); Sodium, Blood 141 mmol/L (136-145)
--- NOTE | 2019-06-15 05:28 | NUR ---
SHIFT SUMMARY: ZACARIAS RESTED FOR THE MAJORITY OF THE NIGHT. HE DID COMPLAIN OF SORENESS IN HIS LEFT ARM FOR WHICH HE REPORTED THE NORCO TO BE EFFECTIVE. HE IS INDEPENDENT TO THE BATHROOM/URINAL. HE REPORTS WALKING THE HALLS HELPS WHEN HE IS FEELING ANXIOUS WELL THE ATIVAN. HE HAS EXCELLENT PO INTAKE. DRESSING TO LEFT SHOULDER WITH SCANT DRAINAGE. MEPLIEX TO LEFT UNDERSIDE OF UPPER ARM C/D&I. HE WAS COUNSELED ON THE IMPORTANCE OF SMOKING CESSATION AND ADHERING TO THE RESTRICTIONS OF USE OF HIS LEFT ARM. HE WAS ENCOURAGED TO MAKE HIS HEALTH A PRIORITY. HEPARIN INFUSING TO IV IN RIGHT FOREARM. ANTIBIOTIC INFUSING IN IV IN RIGHT BICEP. HE IS LYING IN BED WITH HIS CALL LIGHT IN REACH. WILL REPORT TO DAY SHIFT RN.
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
[2019-06-15] MEDS ORDERED: TRAM50 PO (15:24)
[2019-06-15] MEDS ORDERED: ACET325 PO (15:25)
[2019-06-15] MEDS ORDERED: Florastor250 MG PO (15:26)
[2019-06-15] MEDS ORDERED: XARELTO20 MG PO (15:26)
[2019-06-15] MEDS ORDERED: AMOCLA875 PO (15:27)
[2019-06-15] MEDS ORDERED: BACTRIM DS TAB1 EACH PO (15:29)
--- NOTE | 2019-06-15 17:43 | NUR ---
DISCHARGE: PACKET PRINTED AND PT EDUCATED. SENT WITH SCRIPTS AND MEDS FAXED. PT GIVEN [employer]ERAL [employer] DRESSINGS FOR DRESSING CHANGES. LEFT UNIT ON FOOT AT ABOUT 1615
== END 2019-06-15 16:30 | disposition home or self-care (01) | DRG 253 ==
LOC: ER 14:10 → ERHOLD 14:11 → ICUW 14:11 → ER 16:54 → ERHOLD 16:54 → EDBEDREQ 17:21 → ERHOLD 18:09 → ICUW 18:26 → SURS 06-11 15:44 → ICUW 06-11 16:00 → SURS 06-11 21:58
PROVIDERS: Emergency Medicine; Hospitalist; Nurse Practitioner Acute Care; Pharmacist; ADMIT Family Medicine
PROC: 0HQCXZZ Repair Left Upper Arm Skin, External Approach (ICD-10-PCS; principal; 2019-06-10)
PROC: 05H Upper Veins, Insertion (ICD-10-PCS; 2019-06-11)
PROC: B51N1ZZ Fluoroscopy of Left Upper Extremity Veins using Low Osmolar Contrast (ICD-10-PCS; 2019-06-11)
PROC: 30233N1 Transfusion of Nonautologous Red Blood Cells into Peripheral Vein, Percutaneous Approach (ICD-10-PCS; 2019-06-11)
DX: I82.622 Acute embolism and thrombosis of deep veins of left upper extremity (principal); D62 Acute posthemorrhagic anemia; K50.90 Crohn's disease, unspecified, without complications; S41.152A Open bite of left upper arm, initial encounter; W54.0XXA Bitten by dog, initial encounter; Y93.9 Activity, unspecified; Y92.9 Unspecified place or not applicable; Y99.9 Unspecified external cause status; F20.9 Schizophrenia, unspecified; Z86.14 Personal history of Methicillin resistant Staphylococcus aureus infection; J45.909 Unspecified asthma, uncomplicated; K21.9 Gastro-esophageal reflux disease without esophagitis; F17.210 Nicotine dependence, cigarettes, uncomplicated; F41.8 Other specified anxiety disorders
CPT/HCPCS: 12002; 36217; 36415; 36430; 37236; 51702; 73206; 75710; 75774; 76937; 80048; 80053; 80069; 80202; 81001; 85014; 85018; 85025; 85610; 85730; 86850; 86900; 86901; 86923; 87040; 87081; 90686; 96361-59; 96365-59; 96366; 96367; 96375; 96375-59; 96376; 97110; 97165; 99152; 99153; 99285-25; A9270-GY; C1725; C1760; C1769; C1874; C1887; C1894; G0378; J1644; J1885; J2060; J2250; J2405; J2543; J3010; J3370; J7030; J7050; P9016; Q9967

== ENCOUNTER 2019-06-19 08:30 | Emergency (ER) | payer OTHER ==
[~2019-06-19] VITALS: Ht 180.3 cm; Wt 81.7 kg
[~2019-06-19 08:30] MED LIST changes: +ACET325 PO; +BACTRIM DS TAB1 EACH PO; +Florastor250 MG PO; +XARELTO20 MG PO
== END 2019-06-19 09:00 | disposition home or self-care (01) ==
LOC: ER 08:30
DX: S41.112D Laceration without foreign body of left upper arm, subsequent encounter (principal); J45.909 Unspecified asthma, uncomplicated; F20.9 Schizophrenia, unspecified; F32.9 Major depressive disorder, single episode, unspecified; K21.9 Gastro-esophageal reflux disease without esophagitis; F17.210 Nicotine dependence, cigarettes, uncomplicated; Z79.899 Other long term (current) drug therapy
CPT/HCPCS: 99282

== ENCOUNTER → 2021-03-17 | Outpatient (CLI) | payer OTHER ==
[2021-03-19 00:09] LABS: CHLAMYDIA TRACHOMATIS, NAA Negative (Negative)
[2021-03-19 07:10] LABS: HIV SCREEN 4TH GENERATION WRFX Non Reactive (Non Reactive)
== END ==
LOC: LAB 10:00 → LAB SHORT 10:00
PROVIDERS: Physician Assistant Surgical
DX: Z72.51 High risk heterosexual behavior (principal); Z91.030 Bee allergy status
CPT/HCPCS: 86592; 87389; 87491; 87591

== ENCOUNTER 2021-05-28 18:39 | Emergency (ER) | payer OTHER ==
[~2021-05-28] VITALS: Ht 170.2 cm; Wt 77.1 kg
== END 2021-05-28 21:38 | disposition home or self-care (01) ==
LOC: ER 18:39
DX: U07.1 COVID-19 (principal); F15.10 Other stimulant abuse, uncomplicated; J45.909 Unspecified asthma, uncomplicated; K21.9 Gastro-esophageal reflux disease without esophagitis; Z91.048 Other nonmedicinal substance allergy status; F17.200 Nicotine dependence, unspecified, uncomplicated
CPT/HCPCS: 93005; 93010; 99284-25; A9270

== ENCOUNTER → 2021-10-04 | Outpatient (CLI) | payer OTHER ==
[~2021-10-04] MED LIST changes: +HYDHCL25 PO
[2021-10-04 18:51] LABS: BASOPHILS ABSOLUTE AUTO 0.05 K/mm3 (0.00-0.23); BASOPHILS PERCENT AUTO 1 % (0-2); EOSINOPHILS PERCENT AUTO 2 % (0-6); Hemoglobin 14.1 g/dL (13.5-17.5); IMMATURE GRAN ABSOLUTE AUTO 0.01 K/mm3 (0.00-0.10); IMMATURE GRAN PERCENT AUTO 0 % (0-1); LYMPHOCYTES ABSOLUTE AUTO 2.34 K/mm3 (0.84-5.20); LYMPHOCYTES PERCENT AUTO 41 % (21-46); MONOCYTES ABSOLUTE AUTO 0.54 K/mm3 (0.16-1.47); MONOCYTES PERCENT AUTO 9 % (4-13); Mean Corpuscular HGB 30.9 pg (26.0-34.0); Mean Corpuscular HGB Conc 33.6 g/dL (31.5-36.5); Mean Corpuscular Volume 92 fL (80-100); Mean Platelet Volume 9.6 fL (9.1-12.4); NEUTROPHILS ABSOLUTE AUTO 2.68 K/mm3 (1.96-9.15); NEUTROPHILS PERCENT AUTO 47 % (41-73); Platelet Count 316 K/mm3 (150-400); RDW Coefficient Variation 12.6 % (11.7-14.2); RDW Standard Deviation 42.6 fL (35.1-46.3); Red Blood Cell Count 4.56 M/mm3 (4.30-5.90); White Blood Cell Count 5.72 K/mm3 (4.00-11.30)
[2021-10-04 19:05] LABS: Alanine Aminotransfer (ALT/SGP 62 U/L (12-78); Albumin, Blood 4.1 g/dL (3.4-5.0); Albumin/Globulin Ratio 1.2 (0.8-1.8); Alk Phos 103 U/L (50-136); Anion Gap 2 mmol/L (6-16); Aspartate Aminotrans (AST/SGOT 33 U/L (12-37); Bilirubin, Total 0.2 mg/dL (0.1-1.0); Blood Urea Nitrogen 11 mg/dL (8-24); Bun/Creatinine Ratio 13.9 (12.0-20.0); CHOL/HDL RATIO 2.3; CO2, Blood 34 mmol/L (21-32); Calcium, Blood 9.6 mg/dL (8.5-10.1); Chloride, Blood 105 mmol/L (98-108); Cholesterol 134 mg/dL (50-200); Creatinine, Blood 0.79 mg/dL (0.60-1.20); Globulin, Blood 3.3 g/dL (2.2-4.0); Glomerular Filtration Rate 114 (60-); Glucose, Blood 72 mg/dL (70-99); HDL Cholesterol 58 mg/dL (>39); LDL/HDL RATIO 0.9; Low Density Lipoprotein Chol 51 mg/dL (0-110); Potassium, Blood 4.5 mmol/L (3.5-5.5); Sodium, Blood 141 mmol/L (136-145); Total Protein, Blood 7.4 g/dL (6.4-8.2); Triglycerides 127 mg/dL (30-160); Very Low Density Lipoprot Chol 25 mg/dL (6-32)
== END | disposition home or self-care (01) ==
LOC: LAB SHORT 15:58
PROVIDERS: Nurse Practitioner
DX: Z11.59 Encounter for screening for other viral diseases (principal); Z13.6 Encounter for screening for cardiovascular disorders; F20.0 Paranoid schizophrenia
CPT/HCPCS: 80053; 80061; 85025; 86803

== ENCOUNTER → 2022-05-16 | Outpatient (CLI) | payer OTHER ==
[~2022-05-16] MED LIST changes: +MIRALAX17 GM PO
[2022-05-16 13:47] LABS: BASOPHILS ABSOLUTE AUTO 0.04 K/mm3 (0.00-0.23); BASOPHILS PERCENT AUTO 1 % (0-2); EOSINOPHILS ABSOLUTE AUTO 0.06 K/mm3 (0.00-0.68); EOSINOPHILS PERCENT AUTO 1 % (0-6); Hematocrit 43.2 % (37.0-53.0); Hemoglobin 14.8 g/dL (13.5-17.5); IMMATURE GRAN ABSOLUTE AUTO 0.01 K/mm3 (0.00-0.10); IMMATURE GRAN PERCENT AUTO 0 % (0-1); LYMPHOCYTES ABSOLUTE AUTO 1.92 K/mm3 (0.84-5.20); LYMPHOCYTES PERCENT AUTO 34 % (21-46); MONOCYTES ABSOLUTE AUTO 0.51 K/mm3 (0.16-1.47); MONOCYTES PERCENT AUTO 9 % (4-13); Mean Corpuscular HGB 30.8 pg (26.0-34.0); Mean Corpuscular HGB Conc 34.3 g/dL (31.5-36.5); Mean Corpuscular Volume 90 fL (80-100); Mean Platelet Volume 8.8 fL (9.1-12.4); NEUTROPHILS ABSOLUTE AUTO 3.11 K/mm3 (1.96-9.15); NEUTROPHILS PERCENT AUTO 55 % (41-73); Platelet Count 366 K/mm3 (150-400); RDW Coefficient Variation 12.7 % (11.7-14.2); RDW Standard Deviation 42.2 fL (35.1-46.3); Red Blood Cell Count 4.81 M/mm3 (4.30-5.90); White Blood Cell Count 5.65 K/mm3 (4.00-11.30)
[2022-05-16 13:57] LABS: Calcium, Blood 9.1 mg/dL (8.5-10.1); Creatinine, Blood 0.82 mg/dL (0.60-1.20); Potassium, Blood 4.1 mmol/L (3.5-5.5)
[2022-05-17 09:10] LABS: HIV AB/P24 AG SCREEN Non Reactive (Non Reactive)
[2022-05-17 21:10] LABS: ANA DIRECT Negative (Negative); ANTI-DNA (DS) AB QN <1 IU/mL (0-9); RNP ANTIBODIES <0.2 AI (0.0-0.9); SJOGREN'S ANTI-SS-A <0.2 AI (0.0-0.9); SJOGREN'S ANTI-SS-B <0.2 AI (0.0-0.9); SMITH ANTIBODIES <0.2 AI (0.0-0.9)
[2022-05-18 00:10] LABS: HBSAG SCREEN Negative (Negative); HCV AB <0.1 (0.0-0.9); HEP B CORE AB, TOT Negative (Negative)
[2022-05-18 11:11] LABS: CHLAMYDIA BY NAA Negative (Negative); GONOCOCCUS BY NAA Negative (Negative); TRICH VAG BY NAA Negative (Negative)
== END | disposition home or self-care (01) ==
LOC: LAB SHORT 13:34 → LAB 13:34
PROVIDERS: Physician Assistant Medical
DX: M25.50 Pain in unspecified joint (principal); Z72.51 High risk heterosexual behavior
CPT/HCPCS: 80048; 85025; 85651; 86140; 86225; 86235; 86592; 86704; 86708; 86803; 87340; 87389; 87491; 87591; 87661

== ENCOUNTER 2022-07-03 02:07 | Emergency (ER) | payer OTHER ==
[~2022-07-03] VITALS: Ht 167.6 cm; Wt 79.4 kg
[2022-07-03] MEDS ORDERED: CEPH500 PO (03:28)
== END 2022-07-03 03:39 | disposition home or self-care (01) ==
LOC: ER 02:07
DX: T23.261A Burn of second degree of back of right hand, initial encounter (principal); T31.0 Burns involving less than 10% of body surface; Z88.5 Allergy status to narcotic agent; Z91.030 Bee allergy status; X19.XXXA Contact with other heat and hot substances, initial encounter
CPT/HCPCS: 90471; 90714; 99283

== ENCOUNTER 2022-11-10 12:36 | Observation (INO) | payer OTHER ==
[~2022-11-10] VITALS: Ht 167.6 cm; Wt 77.1 kg
[2022-11-10 13:46] LABS: Source, Urine Clean Catch
[2022-11-10 13:57] LABS: BASOPHILS ABSOLUTE AUTO 0.05 K/mm3 (0.00-0.23); BASOPHILS PERCENT AUTO 1 % (0-2); EOSINOPHILS ABSOLUTE AUTO 0.09 K/mm3 (0.00-0.68); EOSINOPHILS PERCENT AUTO 2 % (0-6); Hematocrit 37.8 % (37.0-53.0); IMMATURE GRAN ABSOLUTE AUTO 0.01 K/mm3 (0.00-0.10); IMMATURE GRAN PERCENT AUTO 0 % (0-1); LYMPHOCYTES ABSOLUTE AUTO 2.19 K/mm3 (0.84-5.20); LYMPHOCYTES PERCENT AUTO 45 % (21-46); MONOCYTES ABSOLUTE AUTO 0.59 K/mm3 (0.16-1.47); MONOCYTES PERCENT AUTO 12 % (4-13); Mean Corpuscular HGB 30.7 pg (26.0-34.0); Mean Corpuscular HGB Conc 34.4 g/dL (31.5-36.5); Mean Corpuscular Volume 89 fL (80-100); Mean Platelet Volume 8.7 fL (9.1-12.4); NEUTROPHILS ABSOLUTE AUTO 1.99 K/mm3 (1.96-9.15); NEUTROPHILS PERCENT AUTO 41 % (41-73); Platelet Count 315 K/mm3 (150-400); RDW Coefficient Variation 13.1 % (11.7-14.2); RDW Standard Deviation 42.5 fL (35.1-46.3); Red Blood Cell Count 4.23 M/mm3 (4.30-5.90); White Blood Cell Count 4.92 K/mm3 (4.00-11.30)
[2022-11-10 14:16] LABS: Appearance, Urine Clear (Clear); Bilirubin, Urine Neg (Neg); Blood, Urine 2+ (Neg); Color, Urine Yellow (P-Yellow); Glucose Qualitative, Urine Neg (Neg); Ketones, Urine Neg (Neg); Leukocyte Esterase, Urine Neg (Neg); Nitrite, Urine Neg (Neg); Protein, Urine Neg (Neg); Specific Gravity, Urine 1.015 (1.003-1.022); Urobilinogen, Urine NORM (Normal)
[2022-11-10 14:31] LABS: Bacteria Few /hpf; Squamous Epithelial Cells Rare /hpf (Few); White Blood Cells, Urine 0-2 /hpf (0-5)
[2022-11-10 14:46] LABS: U Amphetamine Screen DETECTED; U Barbituate Screen Not Detected; U Benzodiazapine Screen Not Detected; U Buprenorphine Screen Not Detected; U Cannabinoids Screen Not Detected; U Cocaine Screen Not Detected; U Methadone Screen Not Detected; U Methamphetamine Screen DETECTED; U Opiates Screen Not Detected; U Oxycodone Screen Not Detected; U Phencyclidine Screen Not Detected; U Propoxyphene Screen Not Detected
[2022-11-10 15:57] LABS: Albumin, Blood 3.9 g/dL (3.4-5.0); Albumin/Globulin Ratio 1.1 (0.8-1.8); Bilirubin, Total 0.4 mg/dL (0.1-1.0); Bun/Creatinine Ratio 12.7 (12.0-20.0); Calcium, Blood 9.4 mg/dL (8.5-10.1); Creatinine, Blood 1.02 mg/dL (0.60-1.20); Globulin, Blood 3.4 g/dL (2.2-4.0); Potassium, Blood 4.3 mmol/L (3.5-5.5); Total Protein, Blood 7.3 g/dL (6.4-8.2)
[2022-11-10 20:19] LABS: Ethanol (Alcohol), Blood, Med <3 mg/dL
[2022-11-10 20:21] LABS: Acetaminophen, Random <2.0 ug/mL (10.0-30.0)
[2022-11-11 11:08] VITALS: BP 177/113
[2022-11-11] MEDS ORDERED: Seroquel Xr50 MG PO (12:22)
== END 2022-11-11 13:48 | disposition home or self-care (01) ==
LOC: ER 12:36 → EOR 12:37
PROVIDERS: Physician Assistant; ADMIT Emergency Medicine
DX: F25.0 Schizoaffective disorder, bipolar type (principal); Z88.8 Allergy status to other drugs, medicaments and biological substances; K21.9 Gastro-esophageal reflux disease without esophagitis; F17.210 Nicotine dependence, cigarettes, uncomplicated
CPT/HCPCS: 36415; 80053; 81001; 84436; 85025; 99285-25; A9270; G0378; G0480; Q3014

== ENCOUNTER 2024-07-01 23:16 | Observation (INO) | payer OTHER ==
[~2024-07-01] VITALS: Ht 172.7 cm; Wt 73.1 kg
[~2024-07-01 23:16] MED LIST changes: +Seroquel Xr50 MG PO
[2024-07-01 23:27] LABS: PCO2 Arterial 45.3 mmHg (35-45); PO2 Arterial 182 mmHg (80-100); pH Blood Arterial 7.41 (7.35-7.45)
[2024-07-01 23:32] LABS: BASOPHILS ABSOLUTE AUTO 0.05 K/mm3 (0.00-0.23); BASOPHILS PERCENT AUTO 1 % (0-2); EOSINOPHILS ABSOLUTE AUTO 0.04 K/mm3 (0.00-0.68); EOSINOPHILS PERCENT AUTO 1 % (0-6); Hematocrit 38.6 % (37.0-53.0); Hemoglobin 13.3 g/dL (13.5-17.5); IMMATURE GRAN ABSOLUTE AUTO 0.01 K/mm3 (0.00-0.10); IMMATURE GRAN PERCENT AUTO 0 % (0-1); LYMPHOCYTES ABSOLUTE AUTO 2.18 K/mm3 (0.84-5.20); LYMPHOCYTES PERCENT AUTO 28 % (21-46); MONOCYTES ABSOLUTE AUTO 0.99 K/mm3 (0.16-1.47); MONOCYTES PERCENT AUTO 13 % (4-13); Mean Corpuscular HGB 31.5 pg (26.0-34.0); Mean Corpuscular HGB Conc 34.5 g/dL (31.5-36.5); Mean Corpuscular Volume 92 fL (80-100); Mean Platelet Volume 8.8 fL (9.1-12.4); NEUTROPHILS ABSOLUTE AUTO 4.59 K/mm3 (1.96-9.15); NEUTROPHILS PERCENT AUTO 59 % (41-73); Platelet Count 324 K/mm3 (150-400); RDW Coefficient Variation 12.9 % (11.7-14.2); RDW Standard Deviation 43.4 fL (35.1-46.3); Red Blood Cell Count 4.22 M/mm3 (4.30-5.90); White Blood Cell Count 7.86 K/mm3 (4.00-11.30)
[2024-07-01 23:45] LABS: Alanine Aminotransfer (ALT/SGP 43 U/L (12-78); Albumin, Blood 4.1 g/dL (3.4-5.0); Albumin/Globulin Ratio 1.2 (0.8-1.8); Alk Phos 89 U/L (50-136); Anion Gap 8 mmol/L (3-11); Aspartate Aminotrans (AST/SGOT 29 U/L (12-37); Bilirubin, Total 0.3 mg/dL (0.1-1.0); Blood Urea Nitrogen 16 mg/dL (8-24); Bun/Creatinine Ratio 13.8 (12.0-20.0); CO2, Blood 31 mmol/L (21-32); Calcium, Blood 9.5 mg/dL (8.5-10.1); Chloride, Blood 106 mmol/L (98-108); Creatinine, Blood 1.16 mg/dL (0.60-1.20); Globulin, Blood 3.3 g/dL (2.2-4.0); Glomerular Filtration Rate 80 (60-); Glucose, Blood 101 mg/dL (70-99); Potassium, Blood 3.8 mmol/L (3.5-5.5); Sodium, Blood 141 mmol/L (136-145); Total Protein, Blood 7.4 g/dL (6.4-8.2)
[2024-07-01] MEDS ORDERED: Dexamethasone Sod Phos 10 MG/ML 1ML VIAL IV ONE (23:45)
[2024-07-01] MEDS ORDERED: Ipratropium/Albuterol SulF 2.5-0.5MG/3 ML Amp INH ONE (23:45)
[2024-07-02 01:33] LABS: Ethanol (Alcohol), Blood, Med <3 mg/dL
[2024-07-02] MEDS ORDERED: Lactated Ringer's 1,000 ML IV SCH (04:00)
[2024-07-02] MEDS ORDERED: Albuterol HFA200 ACT/6.7 GM INH INH PRN (04:55)
[2024-07-02 05:22] VITALS: BP 146/114
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
[2024-07-02 08:23] LABS: Hematocrit 39.3 % (37.0-53.0); Hemoglobin 13.8 g/dL (13.5-17.5); Mean Corpuscular HGB 31.7 pg (26.0-34.0); Mean Corpuscular HGB Conc 35.1 g/dL (31.5-36.5); Mean Corpuscular Volume 90 fL (80-100); Mean Platelet Volume 9.1 fL (9.1-12.4); Platelet Count 333 K/mm3 (150-400); RDW Coefficient Variation 12.8 % (11.7-14.2); RDW Standard Deviation 41.9 fL (35.1-46.3); Red Blood Cell Count 4.36 M/mm3 (4.30-5.90); White Blood Cell Count 5.06 K/mm3 (4.00-11.30)
[2024-07-02 08:30] VITALS: BP 137/105
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
[2024-07-02 08:45] LABS: Albumin, Blood 3.9 g/dL (3.4-5.0); Albumin/Globulin Ratio 1.2 (0.8-1.8); Bilirubin, Total 0.3 mg/dL (0.1-1.0); Bun/Creatinine Ratio 16.5 (12.0-20.0); Calcium, Blood 8.6 mg/dL (8.5-10.1); Creatinine, Blood 0.79 mg/dL (0.60-1.20); Globulin, Blood 3.2 g/dL (2.2-4.0); Total Protein, Blood 7.1 g/dL (6.4-8.2)
[2024-07-02] MEDS ORDERED: Nicotine Polacrilex 2 MG Gum PO PRN (09:50)
[2024-07-02] MEDS ORDERED: Famotidine 20 MG Tab PO SCH (10:00)
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
[2024-07-02 11:31] VITALS: BP 167/112
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
[2024-07-02] MEDS ORDERED: Acetaminophen 325 MG TABLET PO PRN (11:50)
[2024-07-02 15:54] VITALS: BP 131/84
[2024-07-02] MEDS ORDERED: ALBU90OI INH (17:02)
[2024-07-02] MEDS ORDERED: FAMO20 PO (17:02)
[2024-07-02] MEDS ORDERED: Acetaminophen325 M1 PO (17:02)
[2024-07-02] MEDS ORDERED: Seroquel Xr50 MG PO (17:03)
--- NOTE | 2024-07-02 17:15 | NUR ---
SHIFT SUMMARY: Pt LS have improved throughout the shift. Has remained tearful and depressed but has been very appriciative of care. HR has remained reg. Pt has been up independently and done well. Plan for possible discharge tonight. Pt states that he would like to discharge and stay with his Mom at a hotel. Pt has recieved assistance with [facility] as well as other agencies. Pt has had girlfriend, sister and mother here to visit him and appears to have a good support system. Stable at this time. Will continue to monitor.
--- NOTE | 2024-07-02 18:57 | NUR ---
DISCHARGE: Pt was given verbal and written discharge instructions. Verbalzied understanding, denies questions. IV's were discontinued, caths intact. Pt sig other called for a ride. Stable at time of discharge, just waiting for ride to arrive.
[2024-07-02] MEDS ORDERED: QUEtiapine Fumarate 50 MG TAB PO SCH (21:00)
== END 2024-07-02 19:05 | disposition home or self-care (01) ==
LOC: ER 23:16 → PCU 23:17 → SURS 23:17 → PCU 07-02 05:07
PROVIDERS: Student in an Organized Health Care Education/Training Program; Surgery; ADMIT Surgery
DX: T59.811A Toxic effect of smoke, accidental (unintentional), initial encounter (principal); F43.0 Acute stress reaction; F20.0 Paranoid schizophrenia; F17.210 Nicotine dependence, cigarettes, uncomplicated; R79.89 Other specified abnormal findings of blood chemistry; J45.909 Unspecified asthma, uncomplicated; K21.9 Gastro-esophageal reflux disease without esophagitis; Z66 Do not resuscitate; Z79.899 Other long term (current) drug therapy; Z88.8 Allergy status to other drugs, medicaments and biological substances; Z91.030 Bee allergy status; Y92.009 Unspecified place in unspecified non-institutional (private) residence as the place of occurrence of the external cause
CPT/HCPCS: 36415; 36600; 70450; 71045; 72125; 73030; 73590; 80053; 80320; 82375; 82803; 83605; 83880; 84484; 85025; 85027; 93005; 93010; 93931; 93971; 94640; 94664; 96374; 99285-25; A9270; G0378; J1100; J7120

== ENCOUNTER 2024-09-05 21:51 | Emergency (ER) | payer OTHER ==
[~2024-09-05] VITALS: Ht 167.6 cm; Wt 74.4 kg
[~2024-09-05 21:51] MED LIST changes: +Acetaminophen325 M1 PO; +FAMO20 PO
[2024-09-05 22:12] LABS: BASOPHILS ABSOLUTE AUTO 0.04 K/mm3 (0.00-0.23); BASOPHILS PERCENT AUTO 0 % (0-2); EOSINOPHILS ABSOLUTE AUTO 0.07 K/mm3 (0.00-0.68); EOSINOPHILS PERCENT AUTO 1 % (0-6); Hematocrit 38.6 % (37.0-53.0); IMMATURE GRAN ABSOLUTE AUTO 0.02 K/mm3 (0.00-0.10); IMMATURE GRAN PERCENT AUTO 0 % (0-1); LYMPHOCYTES ABSOLUTE AUTO 2.71 K/mm3 (0.84-5.20); LYMPHOCYTES PERCENT AUTO 30 % (21-46); MONOCYTES ABSOLUTE AUTO 0.92 K/mm3 (0.16-1.47); MONOCYTES PERCENT AUTO 10 % (4-13); Mean Corpuscular HGB 30.8 pg (26.0-34.0); Mean Corpuscular HGB Conc 33.7 g/dL (31.5-36.5); Mean Corpuscular Volume 92 fL (80-100); Mean Platelet Volume 9.1 fL (9.1-12.4); NEUTROPHILS ABSOLUTE AUTO 5.41 K/mm3 (1.96-9.15); NEUTROPHILS PERCENT AUTO 59 % (41-73); Platelet Count 313 K/mm3 (150-400); RDW Coefficient Variation 12.9 % (11.7-14.2); RDW Standard Deviation 43.2 fL (35.1-46.3); Red Blood Cell Count 4.22 M/mm3 (4.30-5.90); White Blood Cell Count 9.17 K/mm3 (4.00-11.30)
[2024-09-05 22:37] LABS: Albumin/Globulin Ratio 1.2 (0.8-1.8); Bilirubin, Total 0.2 mg/dL (0.1-1.0); Bun/Creatinine Ratio 13.9 (12.0-20.0); Calcium, Blood 8.9 mg/dL (8.5-10.1); Creatinine, Blood 0.93 mg/dL (0.60-1.20); Globulin, Blood 3.4 g/dL (2.2-4.0); Potassium, Blood 3.9 mmol/L (3.5-5.5); Total Protein, Blood 7.4 g/dL (6.4-8.2)
[2024-09-06] MEDS ORDERED: Nitroglycerin 0.4 MG SUBL SL PRN (00:25)
[2024-09-06] MEDS ORDERED: Nitroglycerin 0.4 MG SUBL ONE (00:29)
[2024-09-06] MEDS ORDERED: LORazepam 2 MG/ML 1ML Injection IV ONE (00:45)
[2024-09-06 00:55] VITALS: BP 159/129
== END 2024-09-06 01:12 | disposition left against medical advice (07) ==
LOC: ER 21:51
PROVIDERS: Student in an Organized Health Care Education/Training Program
DX: R07.9 Chest pain, unspecified (principal); K21.9 Gastro-esophageal reflux disease without esophagitis; J45.909 Unspecified asthma, uncomplicated; F17.210 Nicotine dependence, cigarettes, uncomplicated; Z79.899 Other long term (current) drug therapy; Z91.038 Other insect allergy status; Z88.5 Allergy status to narcotic agent
CPT/HCPCS: 71046; 80053; 83690; 84484; 85025; 93005; 93010; 96374; 99283-25; A9270; J2060

== ENCOUNTER 2024-09-11 15:18 | Emergency (ER) | payer OTHER ==
[~2024-09-11] VITALS: Ht 167.6 cm; Wt 74.8 kg
[2024-09-11 15:59] LABS: BASOPHILS ABSOLUTE AUTO 0.06 K/mm3 (0.00-0.23); BASOPHILS PERCENT AUTO 1 % (0-2); EOSINOPHILS ABSOLUTE AUTO 0.05 K/mm3 (0.00-0.68); EOSINOPHILS PERCENT AUTO 1 % (0-6); Hematocrit 42.5 % (37.0-53.0); Hemoglobin 14.4 g/dL (13.5-17.5); IMMATURE GRAN ABSOLUTE AUTO 0.01 K/mm3 (0.00-0.10); IMMATURE GRAN PERCENT AUTO 0 % (0-1); LYMPHOCYTES ABSOLUTE AUTO 1.97 K/mm3 (0.84-5.20); LYMPHOCYTES PERCENT AUTO 31 % (21-46); MONOCYTES ABSOLUTE AUTO 0.51 K/mm3 (0.16-1.47); MONOCYTES PERCENT AUTO 8 % (4-13); Mean Corpuscular HGB 31.2 pg (26.0-34.0); Mean Corpuscular HGB Conc 33.9 g/dL (31.5-36.5); Mean Corpuscular Volume 92 fL (80-100); Mean Platelet Volume 8.9 fL (9.1-12.4); NEUTROPHILS ABSOLUTE AUTO 3.83 K/mm3 (1.96-9.15); NEUTROPHILS PERCENT AUTO 60 % (41-73); Platelet Count 364 K/mm3 (150-400); RDW Standard Deviation 44.1 fL (35.1-46.3); Red Blood Cell Count 4.62 M/mm3 (4.30-5.90); White Blood Cell Count 6.43 K/mm3 (4.00-11.30)
[2024-09-11 16:09] LABS: Albumin/Globulin Ratio 1.1 (0.8-1.8); Bilirubin, Total 0.3 mg/dL (0.1-1.0); Bun/Creatinine Ratio 17.8 (12.0-20.0); Calcium, Blood 9.1 mg/dL (8.5-10.1); Creatinine, Blood 0.84 mg/dL (0.60-1.20); Globulin, Blood 3.7 g/dL (2.2-4.0); Total Protein, Blood 7.7 g/dL (6.4-8.2)
[2024-09-11] MEDS ORDERED: Ondansetron HCl 2 MG / ML 2ML Vial IV ONE (21:05)
[2024-09-11] MEDS ORDERED: Prochlorperazine Edisylate 10 mg Vial IV ONE (22:20)
[2024-09-11] MEDS ORDERED: DiphenhydrAMINE HCl 50 MG/ML 1ML Vial IV ONE (22:20)
[2024-09-11] MEDS ORDERED: ONDA4ODT MM (23:59)
[2024-09-12] VITALS: BP 126/88
== END 2024-09-12 00:15 | disposition home or self-care (01) ==
LOC: ER 15:18
PROVIDERS: Emergency Medicine
DX: K85.90 Acute pancreatitis without necrosis or infection, unspecified (principal); M25.512 Pain in left shoulder; Z88.8 Allergy status to other drugs, medicaments and biological substances; Z91.030 Bee allergy status; Z79.899 Other long term (current) drug therapy; J45.909 Unspecified asthma, uncomplicated; K21.9 Gastro-esophageal reflux disease without esophagitis; F17.210 Nicotine dependence, cigarettes, uncomplicated
CPT/HCPCS: 71045; 73030; 80053; 83690; 84484; 85025; 93005; 93010; 96374; 96375; 99284-25; J0780; J1200; J2405